=== PATIENT | female | born 1935 | race Caucasian/White ===

== ENCOUNTER 2021-02-19 13:26 | Outpatient (CLI) | payer MEDICARE, OTHER | END 2021-02-19 13:27 | disposition home or self-care (01) | LOC: BICULT 13:26 | PROVIDERS: ATTEND Internal Medicine Hematology & Oncology | DX: N63.22 Unspecified lump in the left breast, upper inner quadrant (principal); D24.2 Benign neoplasm of left breast; D75.89 Other specified diseases of blood and blood-forming organs | CPT/HCPCS: 76642; 77066; G0279 ==

== ENCOUNTER → 2021-03-04 | Day surgery (SDC) | payer MEDICARE, OTHER | LOC: BICULT 10:39 | PROVIDERS: ATTEND Internal Medicine Hematology & Oncology | DX: N64.9 Disorder of breast, unspecified (principal); Z53.9 Procedure and treatment not carried out, unspecified reason ==

== ENCOUNTER 2021-03-09 12:49 | Outpatient (CLI) | payer MEDICARE, OTHER ==
[~2021-03-09 12:49] MED LIST: Iopamidol 370 76% 100 ML VIAL ONE
== END 2021-03-09 12:50 | disposition home or self-care (01) ==
LOC: BICCT 12:49
PROVIDERS: ATTEND Family Medicine
DX: R91.1 Solitary pulmonary nodule (principal); R91.8 Other nonspecific abnormal finding of lung field
CPT/HCPCS: 71260; 82565

== ENCOUNTER 2021-04-02 10:23 | Outpatient (CLI) | payer MEDICARE, OTHER | END 2021-04-02 10:24 | disposition home or self-care (01) | LOC: PET 10:23 | PROVIDERS: ATTEND Internal Medicine Critical Care Medicine | DX: R91.1 Solitary pulmonary nodule (principal) | CPT/HCPCS: 78815; A9552 ==

== ENCOUNTER 2021-04-15 17:41 | Inpatient (IN) | payer MEDICARE, OTHER ==
[~2021-04-15 17:41] MED LIST changes: -Atorvastatin Calcium 10 MG TAB PO SCH; -Empagliflozin 10 MG TAB PO SCH; +Fentanyl 100 MCG/2 ML VIAL ONE; -Furosemide 20 MG TAB PO SCH; -Lisinopril 20 MG TAB PO SCH; +Midazolam HCl 2 mg/2 ml Vial ONE; -Senokot S 8.6-50 MG TAB PO PRN; +Sodium Bicarbonate 2.5 MEQ/5 ML VIAL ONE; -traMADol HCl 50 MG TAB PO PRN
[2021-04-15 19:54] VITALS: BMI 37.5
[2021-04-16 08:25] VITALS: BP 119/76; TEMP 97.8
== END 2021-04-16 14:35 | disposition home or self-care (01) | DRG 201 ==
LOC: SURG A 17:41
PROVIDERS: ADMIT Internal Medicine Critical Care Medicine; ATTEND Internal Medicine Critical Care Medicine
DX: J95.811 Postprocedural pneumothorax (principal); Z20.822 Contact with and (suspected) exposure to COVID-19; Y83.8 Other surgical procedures as the cause of abnormal reaction of the patient, or of later complication, without mention of misadventure at the time of the procedure; I10 Essential (primary) hypertension; E78.5 Hyperlipidemia, unspecified; Z90.710 Acquired absence of both cervix and uterus; Z90.49 Acquired absence of other specified parts of digestive tract; Z88.5 Allergy status to narcotic agent; Z88.2 Allergy status to sulfonamides
CPT/HCPCS: 32408; 71045; 77012; 85025; 85610; 85730; 88173; 88305; 88333; 88334; 88341; 88342; J2250; J3010

== ENCOUNTER → 2021-04-15 | Day surgery (SDC) | payer MEDICARE, OTHER ==
[2021-04-09 13:37] VITALS: BMI 37.5
[~2021-04-15] MED LIST changes: +Atorvastatin Calcium 10 MG TAB PO SCH; +Empagliflozin 10 MG TAB PO SCH; +Furosemide 20 MG TAB PO SCH; -Iopamidol 370 76% 100 ML VIAL ONE; +Lisinopril 20 MG TAB PO SCH; +Senokot S 8.6-50 MG TAB PO PRN; +traMADol HCl 50 MG TAB PO PRN
[2021-04-15 08:41] LABS: #Eosinphils 0.1 thou/uL (0.0-0.7); #Lymphocytes 1.3 thou/uL (1.20-3.40); #Monocytes 0.6 thou/uL (0.11-0.59); #Neutrophils 4.2 thou/uL (1.40-6.50); %Basophils 0.4 % (0.0-1.0); %Eosinophils 1.4 % (0.0-10.0); %Lymphocytes 21.2 % (21.0-51.0); Hemoglobin 14.4 g/dL (12.0-16.0); Mean Corpuscular Hemoglobin 34.2 pg (27.0-31.0); Mean Platelet Volume 6.3 fL (7.4-10.4); Platelet Count 307 thou/uL (130-400); RBC Distribution Width 11.7 % (11.5-14.5); Red Blood Cell (RBC) Count 4.21 mill/uL (4.20-5.40); White Blood Cell (WBC) Count 6.3 thou/uL (4.8-10.8)
[2021-04-15 08:48] LABS: PTT 24.3 sec (22.9-36.1); Prothrombin Time 13.4 sec (12.0-14.7)
[2021-04-15 12:22] VITALS: TEMP 97.7
[2021-04-16 07:55] VITALS: BP 131/80
== END ==
LOC: CT 08:18
PROVIDERS: ATTEND Internal Medicine Critical Care Medicine
PROC: 0BBF3ZX Excision of Right Lower Lung Lobe, Percutaneous Approach, Diagnostic (ICD-10-PCS; principal; 2021-04-15)
DX: C34.31 Malignant neoplasm of lower lobe, right bronchus or lung (principal); J95.811 Postprocedural pneumothorax; I10 Essential (primary) hypertension; E78.5 Hyperlipidemia, unspecified; Z79.82 Long term (current) use of aspirin; Z79.84 Long term (current) use of oral hypoglycemic drugs; Z79.899 Other long term (current) drug therapy; Z88.2 Allergy status to sulfonamides; Z88.5 Allergy status to narcotic agent
CPT/HCPCS: 32408; 71045; 77012; 85025; 85610; 85730

== ENCOUNTER 2021-09-28 10:45 | Outpatient (CLI) | payer MEDICARE, OTHER ==
[~2021-09-28 10:45] MED LIST changes: -Fentanyl 100 MCG/2 ML VIAL ONE; +Iopamidol-370 76% 500 ML 1 ML ONE; -Midazolam HCl 2 mg/2 ml Vial ONE; -Sodium Bicarbonate 2.5 MEQ/5 ML VIAL ONE
== END 2021-09-28 10:46 | disposition home or self-care (01) ==
LOC: BICCT 10:45
PROVIDERS: ATTEND Radiology Radiation Oncology
DX: C34.91 Malignant neoplasm of unspecified part of right bronchus or lung (principal)
CPT/HCPCS: 71260; 82565; Q9967

== ENCOUNTER 2022-04-12 10:22 | Outpatient (CLI) | payer MEDICARE, OTHER ==
[2022-04-12] MEDS ORDERED: Iopamidol 370 76% 100 ML VIAL ONE (14:13)
== END 2022-04-12 10:23 | disposition home or self-care (01) ==
LOC: BICCT 10:22
PROVIDERS: ATTEND Radiology Radiation Oncology
DX: C34.31 Malignant neoplasm of lower lobe, right bronchus or lung (principal)
CPT/HCPCS: 71260; 82565; Q9967

== ENCOUNTER 2022-07-13 11:07 | Outpatient (CLI) | payer MEDICARE, OTHER | END 2022-07-13 11:08 | disposition home or self-care (01) | LOC: BICCT 11:07 | PROVIDERS: ATTEND Radiology Radiation Oncology | DX: C34.11 Malignant neoplasm of upper lobe, right bronchus or lung (principal); J98.4 Other disorders of lung; R91.1 Solitary pulmonary nodule | CPT/HCPCS: 71260; 82565; Q9967 ==

== ENCOUNTER 2022-08-11 12:57 | Outpatient (CLI) | payer MEDICARE, OTHER | END 2022-08-11 12:58 | disposition home or self-care (01) | LOC: BICMAMMO 12:57 | PROVIDERS: ATTEND Family Medicine | DX: N63.0 Unspecified lump in unspecified breast (principal); N63.20 Unspecified lump in the left breast, unspecified quadrant; Z91.89 Other specified personal risk factors, not elsewhere classified; Z80.3 Family history of malignant neoplasm of breast | CPT/HCPCS: 76642; 77066; G0279 ==

== ENCOUNTER 2022-10-05 12:36 | Outpatient (CLI) | payer MEDICARE, OTHER ==
[~2022-10-05 12:36] MED LIST changes: +Iopamidol 370 76% 100 ML VIAL ONE; -Iopamidol-370 76% 500 ML 1 ML ONE
== END 2022-10-05 12:37 | disposition home or self-care (01) ==
LOC: BICCT 12:36
PROVIDERS: ATTEND Radiology Radiation Oncology
DX: C34.11 Malignant neoplasm of upper lobe, right bronchus or lung (principal); R91.8 Other nonspecific abnormal finding of lung field
CPT/HCPCS: 71260

== ENCOUNTER 2023-04-11 11:22 | Outpatient (CLI) | payer MEDICARE, OTHER | END 2023-04-11 11:23 | disposition home or self-care (01) | LOC: BICCT 11:22 | PROVIDERS: ATTEND Radiology Radiation Oncology | DX: C34.11 Malignant neoplasm of upper lobe, right bronchus or lung (principal); J98.4 Other disorders of lung | CPT/HCPCS: 71260; 82565 ==

== ENCOUNTER 2024-04-17 12:50 | Outpatient (CLI) | payer MEDICARE, OTHER | END 2024-04-17 12:51 | disposition home or self-care (01) | LOC: BICMAMMO 12:50 | PROVIDERS: ATTEND Family Medicine | DX: Z12.31 Encounter for screening mammogram for malignant neoplasm of breast (principal); N63.20 Unspecified lump in the left breast, unspecified quadrant; Z80.3 Family history of malignant neoplasm of breast; Z91.89 Other specified personal risk factors, not elsewhere classified | CPT/HCPCS: 77063; 77067 ==

== ENCOUNTER 2024-04-30 11:06 | Outpatient (CLI) | payer MEDICARE, OTHER | END 2024-04-30 11:07 | disposition home or self-care (01) | LOC: BICCT 11:06 | PROVIDERS: ATTEND Radiology Radiation Oncology | DX: C34.11 Malignant neoplasm of upper lobe, right bronchus or lung (principal); Z98.890 Other specified postprocedural states | CPT/HCPCS: 71250 ==